=== PATIENT | female | born 1955 | race Hispanic/Latino ===

== ENCOUNTER 2018-01-28 06:56 | Outpatient (CLI) | payer OTHER | END 2018-01-28 06:57 | disposition home or self-care (01) | LOC: BICULT 06:56 | PROVIDERS: ATTEND Family Medicine | DX: N28.9 Disorder of kidney and ureter, unspecified (principal); R10.9 Unspecified abdominal pain; M54.9 Dorsalgia, unspecified; M47.896 Other spondylosis, lumbar region | CPT/HCPCS: 72100; 76700 ==

== ENCOUNTER 2018-02-26 13:32 | Emergency (ER) | payer OTHER | END 2018-02-26 14:13 | disposition home or self-care (01) | LOC: ERS 13:32 | DX: M54.16 Radiculopathy, lumbar region (principal); E03.9 Hypothyroidism, unspecified; E78.5 Hyperlipidemia, unspecified; I10 Essential (primary) hypertension | CPT/HCPCS: 99283 ==

== ENCOUNTER 2018-03-11 08:49 | Outpatient (CLI) | payer OTHER ==
--- NOTE | 2018-03-13 10:19 | MMO ---
BILATERAL SCREENING MAMMOGRAM: Date: 03/11/18 HISTORY: Screening. COMPARISON: Mammograms from 2017 and 2014. TECHNIQUE: Bilateral screening CC and MLO mammograms. This patient's mammogram was interpreted with the assistance of computer-aided detection. FINDINGS: There are scattered fibroglandular densities. Benign calcifications right breast. No suspicious mass, architectural distortion, or microcalcifications. IMPRESSION: BIRADS 2: Benign Finding(s) Continued annual mammographic screening is recommended. POS: [facility]
== END 2018-03-11 08:50 | disposition home or self-care (01) ==
LOC: SCSMAMMO 08:49
PROVIDERS: ATTEND Family Medicine
DX: Z12.31 Encounter for screening mammogram for malignant neoplasm of breast (principal)
CPT/HCPCS: 77067

== ENCOUNTER 2018-04-02 15:26 | Outpatient (CLI) | payer MEDICARE, MEDICAID ==
--- NOTE | 2018-04-02 16:51 | RAD ---
FOUR VIEWS LUMBAR SPINE INCLUDING AP, LATERAL, FLEXION AND EXTENSION VIEWS LUMBAR SPINE: 04/02/18 Four views lumbar spine demonstrate no evidence of acute lumbar spine fractures, subluxations or bony lesions. IMPRESSION: Normal four views lumbar spine. POS: [facility]
--- NOTE | 2018-04-02 17:00 | RAD ---
CERVICAL SPINE THREE VIEWS: 04/02/18 HISTORY: Neck pain, fall. FINDINGS: Lateral views include neutral, flexion, and extension positioning. There is straightening of the norm al lordotic curvature. Osteophytosis of the vertebral bodies is most pronounced at the C5-6 level. Wh ile there is little motion upon flexion and extension, no abnormal translational motion is apparent. IMPRESSION: Degenerative changes lower cervical spine. no acute osseous abnormalities are demonstrated. POS: [facility]
--- NOTE | 2018-04-02 17:13 | MRI ---
MRI CERVICAL SPINE NONCONTRAST: 04/02/18 HISTORY: Neck pain with radiculopathy. FINDINGS: Vertebral body heights are maintained. Bone marrow signal within normal limits. Straightening of the normal lordotic curvature. At the C5-6 level, mild posterior osteophytes/disc complex is present with slight effacement of the v entral aspect of the thecal sac. No abnormal signal within the spinal cord or significant compression . Mild osteophytosis throughout the cervical spine without significant foraminal stenosis. IMPRESSION: Mild degenerative changes. No focal nerve root compression or disc herniation. POS: [facility]
== END 2018-04-02 15:27 | disposition home or self-care (01) ==
LOC: TBSIIMAG 15:26
PROVIDERS: ATTEND Neurological Surgery
DX: M47.22 Other spondylosis with radiculopathy, cervical region (principal); M54.16 Radiculopathy, lumbar region
CPT/HCPCS: 72040; 72110; 72141

== ENCOUNTER 2018-04-23 16:04 | Outpatient (CLI) | payer MEDICARE, OTHER | END 2018-04-23 16:05 | disposition home or self-care (01) | LOC: BICRAD 16:04 | PROVIDERS: ATTEND Family Medicine | DX: R05 Cough (principal) | CPT/HCPCS: 71046 ==

== ENCOUNTER 2019-03-12 16:14 | Outpatient (CLI) | payer MEDICARE, MEDICAID ==
--- NOTE | 2019-03-12 16:46 | MMO ---
Bilateral MAMMO Bilat Screen [facility]. CLINICAL HISTORY: Patient is 64 years old and is seen for screening. The patient has no family history of breast cancer. The patient has no personal history of cancer. VIEWS: The views performed were: bilateral craniocaudal with tomosynthesis and bilateral mediolateral oblique with tomosynthesis. FILMS COMPARED: The present examination has been compared to prior imaging studies performed at [facility] on 12/18/2012, 12/31/2013, 02/18/2015 and 03/07/2017. MAMMOGRAM FINDINGS: There are scattered fibroglandular densities. There are no suspicious masses, suspicious calcifications, or new areas of architectural distortion. IMPRESSION: THERE IS NO MAMMOGRAPHIC EVIDENCE OF MALIGNANCY. A ROUTINE FOLLOW-UP MAMMOGRAM IN 1 YEAR IS RECOMMENDED. THE RESULTS OF THIS EXAM WERE SENT TO THE PATIENT. ACR BI-RADS Category 2 - Benign finding MAMMOGRAPHY NOTE: 1. A negative mammogram report should not delay a biopsy if a dominant of clinically suspicious mass is present. 2. Approximately 10% to 15% of breast cancers are not detected by mammography. 3. Adenosis and dense breasts may obscure an underlying neoplasm. Reported by: KARISHMA ENGLISH MD Electonically Signed: [id number]
== END 2019-03-12 16:15 | disposition home or self-care (01) ==
LOC: BICMAMMO 16:14
PROVIDERS: ATTEND Family Medicine
DX: Z12.31 Encounter for screening mammogram for malignant neoplasm of breast (principal)
CPT/HCPCS: 77063; 77067

== ENCOUNTER 2020-04-28 12:13 | Outpatient (CLI) | payer MEDICARE, MEDICAID ==
--- NOTE | 2020-04-29 13:35 | MMO ---
Bilateral MAMMO Bilat Screen [facility]. CLINICAL HISTORY: Patient is 65 years old and is seen for screening. The patient has no family history of breast cancer. The patient has no personal history of cancer. VIEWS: The views performed were: bilateral craniocaudal with tomosynthesis and bilateral mediolateral oblique with tomosynthesis. FILMS COMPARED: The present examination has been compared to prior imaging studies performed at [facility] on 12/31/2013, 02/18/2015, 03/07/2017 and 03/12/2019. This study has been interpreted with the assistance of computer-aided detection. MAMMOGRAM FINDINGS: There are scattered fibroglandular densities. Benign calcifications are noted bilaterally. There are no suspicious masses, suspicious calcifications, or new areas of architectural distortion. IMPRESSION: THERE IS NO MAMMOGRAPHIC EVIDENCE OF MALIGNANCY. A ROUTINE FOLLOW-UP MAMMOGRAM IN 1 YEAR IS RECOMMENDED. THE RESULTS OF THIS EXAM WERE SENT TO THE PATIENT. ACR BI-RADS Category 2 - Benign finding MAMMOGRAPHY NOTE: 1. A negative mammogram report should not delay a biopsy if a dominant of clinically suspicious mass is present. 2. Approximately 10% to 15% of breast cancers are not detected by mammography. 3. Adenosis and dense breasts may obscure an underlying neoplasm. Reported by: KARISHMA ENGLISH MD Electonically Signed: [id number]
== END 2020-04-28 12:14 | disposition home or self-care (01) ==
LOC: BICMAMMO 12:13
PROVIDERS: ATTEND Family Medicine
DX: Z12.31 Encounter for screening mammogram for malignant neoplasm of breast (principal)
CPT/HCPCS: 77063; 77067

== ENCOUNTER 2020-09-27 13:32 | Outpatient (CLI) | payer MEDICARE, MEDICAID ==
--- NOTE | 2020-09-27 14:08 | RAD ---
EXAM: XR Knee Rt 2 View PROVIDED CLINICAL HISTORY: Pain FINDINGS: There is no evidence for fracture or other acute osseous abnormality. Alignment appears anatomic. Vijaya nt spaces appear preserved. IMPRESSION: No evidence for an acute osseous abnormality or significant arthropathy.
--- NOTE | 2020-09-27 14:08 | RAD ---
EXAM: XR Knee Lt 2 View PROVIDED CLINICAL HISTORY: Pain FINDINGS: There is no evidence for fracture or other acute osseous abnormality. Alignment appears anatomic. Vijaya nt spaces appear preserved. Small osteophytes are seen about the medial femorotibial joint. IMPRESSION: No evidence for an acute osseous abnormality or significant arthropathy.
--- NOTE | 2020-09-27 14:32 | RAD ---
TEMPOROMANDIBULAR JOINTS: FINDINGS: Both TMJs appear normally maintained on the closed-mouth projections. On open-mouth projection, there is normal translation of the right TMJ. There is decreased anterior translation of the left TMJ. POS: [facility]
== END 2020-09-27 13:33 | disposition home or self-care (01) ==
LOC: BICRAD 13:32
PROVIDERS: ATTEND Internal Medicine
DX: M26.601 Right temporomandibular joint disorder, unspecified (principal); M17.0 Bilateral primary osteoarthritis of knee
CPT/HCPCS: 70330